=== PATIENT | female | born 1960 | race Caucasian/White ===

== ENCOUNTER 2016-12-04 07:53 | Inpatient (IN) | payer SELFPAY ==
[~2016-12-04] VITALS: Ht 185.4 cm; Wt 65.3 kg
--- NOTE | ~2016-12-04 | CON ---
[place], [place] REPORT OF CONSULTATION NAME: TONY MONTOYA UNIT #: [id number] ROOM: 415 DOCTOR: EVE RUSSO MD BIRTHDATE: [birth year] DOS: 12/05/2016 REASON FOR CONSULTATION: Syncope. HISTORY OF PRESENT ILLNESS: The patient is a 56-year-old patient with no significant cardiac history, who came to the Emergency Room after she had a "syncopal attack" at work. Prior to the episode, she has no dizziness, no chest pain, no palpitations. Apparently, she was walking with a cup in her hand and the next thing she remembers was she was on the floor and people were calling her name. Recently, she had some dental extraction with some localized pain few days ago. After she fell, she did sustain some laceration to the right forehead area near the right eye, but there was no seizure-like activities. No bladder or bowel incontinence. Other than the syncopal attack, she denies any chest pain, palpitations or dizziness. No fever or chills. No nausea, vomiting, or diarrhea. No blurred vision or double vision. No hematuria or dysuria. No joint pains or tenderness except for a localized pain from a dental extraction. She never had similar episodes in the past. REVIEW OF SYSTEMS: Review of the 8 systems negative except as mentioned above. PAST MEDICAL HISTORY: History of dental abscess. No history of diabetes, hypertension or coronary artery disease. PAST SURGICAL HISTORY: History of recent dental extraction. SOCIAL HISTORY: The patient does smoke cigarettes, but no alcohol abuse. No illicit drug use. FAMILY HISTORY: Father has diabetes, but at the age of 61. Mother has hypertension, at the age of 57. Sister at the age of 52 from an aneurysm. ALLERGIES: No known drug allergies. HOME MEDICATIONS: Reviewed. PHYSICAL EXAMINATION: VITAL SIGNS: Blood pressure 120/60, pulse 75, respiratory rate 20. GENERAL: Alert, comfortable, in no acute distress. HEENT: Pupils are round and equal. No jaundice. The patient had a laceration to the right forehead near the right eye area. Tongue was moist and pharynx was clear. NECK: Supple, no distended neck veins, no carotid bruit. Thyroid not palpable. CHEST: Chest wall was symmetrical, nontender. LUNGS: Clear to auscultation bilaterally. HEART: Regular rhythm. No S3. No palpable thrills. ABDOMEN: Benign, nontender. Bowel sounds normal. EXTREMITIES: Showed no edema. Distal pulses are palpable. SKIN: Warm and dry. No cyanosis, no clubbing. NEUROLOGIC: The patient is alert, oriented. No focal neurologic deficit. [place], [place] REPORT OF CONSULTATION NAME: TONY MONTOYA UNIT #: [id number] ROOM: [facility] DOCTOR: EVE RUSSO MD BIRTHDATE: [birth year] RECTAL: Deferred. GENITOURINARY: Deferred. REVIEW OF THE DIAGNOSTIC TESTS: EKG shows sinus rhythm with LV hypertrophy, normal QT and QTc intervals. LABORATORY DATA: CBC, chemistry reviewed. IMPRESSION: 1. Syncope, etiology unknown. 2. Tobacco use. 3. Facial injury secondary to fall. RECOMMENDATIONS: 1. Check a 2D echo for LV function and valvular function. 2. Check orthostatic blood pressures. 3. Continue current IV fluids. 4. If she is stable and echo is unremarkable, she can be discharged home tomorrow and we will follow her as outpatient. 5. I would recommend outpatient cardiac event monitor to watch for any alanna or tachyarrhythmias. 6. ____ she is stable, she will need a stress test to rule out an ischemic heart disease. The above treatment discussed with the patient and all questions were answered. EVE RUSSO MD CM:CONSTR:REPORT OF CONSULTATION [id number] 12/06/16 0500 interface
--- NOTE | ~2016-12-04 | CON ---
[place], [place] REPORT OF CONSULTATION NAME: TONY MONTOYA UNIT #: [id number] ROOM: 415 DOCTOR: BIBIANA KLEIN DMD BIRTHDATE: [birth year] DOS: The patient was admitted for facial swelling after a fall. On exam, the patient has right-sided facial swelling with a repaired laceration around the eye, moderate diffuse swelling of the left body of the mandible. Patient denies any dyspnea or dysphagia. 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 The patient states that the swelling and pain is centered around tooth #22. There is no submandibular, submental or sublingual swelling noted. There is diffuse buccal space swelling that appears to be non-drainable. I discussed the treatment options with the patient including extraction or root canal tooth #22. The patient refused extraction due to minimal masticatory effectiveness with her current dentition in upper denture, does not want to lose any other teeth. I did not see the radiology report, but the patient is relatively high risk for a pathologic fracture of the mandible because of severe resorption in the posterior; definitely recommend radiologic verification of non-fracture and also recommend referral to a dentist for root canal once the swelling is controlled and the patient is discharged. BIBIANA KLEIN DMD CM:CONSTR:REPORT OF CONSULTATION [id number] 12/05/16 1511 interface
--- NOTE | ~2016-12-04 | PR ---
[place], [place] PROGRESS NOTE NAME: TONY MONTOYA UNIT #: [id number] ROOM: 415 DOCTOR: VEE RUSSO MD BIRTHDATE: [birth year] DOS: 12/06/2016 REASON FOR VISIT: Syncope. HISTORY OF PRESENT ILLNESS: The patient is feeling better, no dizziness, no palpitation, no chest pain, no shortness of breath. No edema, no orthopnea, no PND. No nausea, vomiting. No headaches. No blurred vision, double vision. REVIEW OF SYSTEMS: Review of the 8 systems negative except as mentioned above. RHYTHM STRIPS: The patient is in sinus rhythm. PHYSICAL EXAMINATION: VITAL SIGNS: Blood pressure 140/90, respiratory rate is 18. Pulse 70. GENERAL: Alert, comfortable, in no acute distress. HEENT: Pupils are round and equal. No jaundice. The patient had a laceration to the right forehead near the eye area. NECK: Supple, no distended neck veins, no carotid bruit. CHEST: Nontender and symmetrical. LUNGS: Clear to auscultation bilaterally. HEART: Regular rhythm, no S3, grade 1/6 systolic murmur at the right sternal border. ABDOMEN: Nontender. Bowel sounds normal. EXTREMITIES: Showed no edema. Distal pulses are palpable. SKIN: Warm and dry. No cyanosis, no clubbing. NEUROLOGIC: The patient is alert, oriented. No focal neurologic deficit. IMPRESSION: 1. Syncope, etiology unknown, possibly vasovagal. 2. Facial injury due to fall. 3. Recent dental abscess. RECOMMENDATIONS: She is feeling better. Blood pressures and heart rates are stable. A 2D echo unremarkable except for mild tricuspid regurgitation. She can be discharged from the cardiac standpoint, and we will call her for outpatient event monitor and also consider a letter for outpatient stress test. [place], [place] PROGRESS NOTE NAME: TONY MONTOYA UNIT #: [id number] ROOM: 415 DOCTOR: EVE RUSSO MD BIRTHDATE: [birth year] EVE RUSSO MD CM:PNTRANS [id number] EVE RUSSO MD 12/06/16 1700 interface
[2016-12-04 08:02] VITALS: BP 139/76
[2016-12-04 08:33] LABS: BASO % 0.2 % (0.0-1.0); EOS % 0.1 % (1.0-4.0); HEMATOCRIT 42.8 % (37.0-47.0); HEMOGLOBIN 14.4 g/dl (12.0-16.0); LYMPH # 0.9 10*3/uL (1.3-4.4); LYMPH % 7.1 % (27.0-41.0); MEAN CELL VOLUME 88.2 fl (81.0-99.0); MEAN CORPUSCULAR HGB 29.7 pg (27.0-31.0); MEAN CORPUSCULAR HGB CONC 33.6 g/dl (33.0-37.0); MEAN PLATELET VOLUME 9.6 fl (9.6-12.3); MONO # 0.5 10*3/uL (0.1-1.0); MONO % 4.4 % (3.0-9.0); NEUT # 10.6 10*3/uL (2.3-7.9); NEUT % 87.9 % (47.0-73.0); PLATELET COUNT AUTOMATED 209 10*3/uL (130-400); RED BLOOD COUNT 4.85 10*6/uL (4.10-5.10); RED CELL DISTRI WIDTH 11.9 % (0-14.5); WHITE BLOOD COUNT 12.1 10*3/uL (4.8-10.8)
[2016-12-04 08:41] LABS: PROTHROMBIN TIME 10.7 SECONDS (9.0-12.4)
[2016-12-04 08:49] LABS: ALBUMIN 3.9 gm/dl (3.1-4.5); ALKALINE PHOSPHATASE 62 U/L (45-117); BILIRUBIN, TOTAL 0.6 mg/dl (0.2-1.0); BUN 6 mg/dl (7-24); C-REACTIVE PROTEIN 0.58 MG/DL (0-0.3); CARBON DIOXIDE 31 mmol/L (21-32); CHLORIDE 105 mmol/L (98-107); CKMB 2.3 ng/ml (0.5-3.6); CPK 90 U/L (26-192); EST GLOM FILT AFRICAN AMERICAN > 60 ml/min; GLUCOSE 132 mg/dL (65-99); MAGNESIUM 2.3 mg/dL (1.5-2.1); POTASSIUM 3.8 mmol/L (3.5-5.1); SGOT/AST 12 IU/L (3-35); SGPT/ALT 22 U/L (12-78); SODIUM 144 mmol/L (136-145); TOTAL PROTEIN 7.2 gm/dL (6.4-8.2)
[2016-12-04 08:56] LABS: TROPONIN I 0.126 ng/ml (<0.045)
[2016-12-04 09:00] VITALS: BP 136/100
[2016-12-04 11:00] VITALS: BP 158/81
[2016-12-04 11:59] LABS: BILIRUBIN NEGATIVE (NEGATIVE); BLOOD 1+ (NEGATIVE); CLARITY CLOUDY (CLEAR); COLOR YELLOW (YELLOW); GLUCOSE NEGATIVE (NEGATIVE); KETONE 1+ (NEGATIVE); LEUKO ESTERASE TRACE (NEGATIVE); NITRITE NEGATIVE (NEGATIVE); PROTEIN 1+ (NEGATIVE); SPECIFIC GRAVITY 1.015 (1.005-1.030)
[2016-12-04 12:00] VITALS: BP 152/90
[2016-12-04 12:06] LABS: BACTERIA 4+
[2016-12-04 12:07] LABS: URINE REFLEX COMMENT YES (NO)
[2016-12-04 14:39] VITALS: BP 144/93
[2016-12-04 18:12] LABS: CKMB 1.1 ng/ml (0.5-3.6)
[2016-12-04 18:21] LABS: TROPONIN I 0.058 ng/ml (<0.045)
[2016-12-04 20:00] VITALS: BP 108/44
[2016-12-05] VITALS: BP 113/62
[2016-12-05 00:57] LABS: CKMB 0.7 ng/ml (0.5-3.6); TROPONIN I 0.028 ng/ml (<0.045)
[2016-12-05 06:24] LABS: BASO % 0.3 % (0.0-1.0); EOS % 0.2 % (1.0-4.0); HEMATOCRIT 38.4 % (37.0-47.0); HEMOGLOBIN 12.6 g/dl (12.0-16.0); IG # 0.1 10*3/uL (0.0-0.1); LYMPH # 1.6 10*3/uL (1.3-4.4); LYMPH % 18.3 % (27.0-41.0); MEAN CELL VOLUME 89.3 fl (81.0-99.0); MEAN CORPUSCULAR HGB 29.3 pg (27.0-31.0); MEAN CORPUSCULAR HGB CONC 32.8 g/dl (33.0-37.0); MEAN PLATELET VOLUME 10.1 fl (9.6-12.3); MONO # 0.6 10*3/uL (0.1-1.0); MONO % 6.9 % (3.0-9.0); NEUT # 6.4 10*3/uL (2.3-7.9); NEUT % 73.7 % (47.0-73.0); PLATELET COUNT AUTOMATED 189 10*3/uL (130-400); RED CELL DISTRI WIDTH 12.1 % (0-14.5); WHITE BLOOD COUNT 8.7 10*3/uL (4.8-10.8)
[2016-12-05 06:28] LABS: TROPONIN I 0.017 ng/ml (<0.045)
[2016-12-05 06:31] LABS: CKMB 0.9 ng/ml (0.5-3.6)
[2016-12-05 06:57] LABS: BUN 9 mg/dl (7-24); CARBON DIOXIDE 26 mmol/L (21-32); CHLORIDE 110 mmol/L (98-107); GLUCOSE 88 mg/dL (65-99); MAGNESIUM 2.3 mg/dL (1.5-2.1); POTASSIUM 3.8 mmol/L (3.5-5.1); SODIUM 144 mmol/L (136-145)
[2016-12-05 06:58] LABS: HEMOGLOBIN A1c 5.4 % (4.8-5.6); PROTHROMBIN TIME 10.7 SECONDS (9.0-12.4)
[2016-12-05 07:07] LABS: ALKALINE PHOSPHATASE 48 U/L (45-117); BILIRUBIN, TOTAL 0.5 mg/dl (0.2-1.0); CHOLESTEROL 157 mg/dL (<200); EST GLOM FILT AFRICAN AMERICAN > 60 ml/min; FREE T4 0.78 ng/dl (0.76-1.46); HDL CHOLESTEROL 72 mg/dl (40-60); LDL CHOLESTEROL 68 mg/dL (9-159); PHOSPHOROUS 2.7 mg/dL (2.5-4.9); SGOT/AST 13 IU/L (3-35); SGPT/ALT 19 U/L (12-78); TRIGLYCERIDES 83 mg/dl (<150); VLDL CHOLESTEROL 17 mg/dL (6-40)
[2016-12-05 07:17] LABS: FOLIC ACID 9.93 ng/mL (>5.38); VITAMIN D, 25-HYDROXY 10.2 ng/mL (30-100)
[2016-12-05 08:00] VITALS: BP 120/60
[2016-12-05 12:00] VITALS: BP 113/60
[2016-12-05 16:47] VITALS: BP 141/81
[2016-12-05 20:00] VITALS: BP 131/68
[2016-12-06] VITALS: BP 131/80
[2016-12-06 08:00] VITALS: BP 170/90
[2016-12-06 12:00] VITALS: BP 119/71
[2016-12-06] MEDS ORDERED: D-1000 185 MG-11 TAB PO (12:31)
[2016-12-06] MEDS ORDERED: B12,B-12,B 12500 MC1 PO (12:31)
[2016-12-06] MEDS ORDERED: CLINDAMYCIN150 MG PO (12:31)
[2016-12-07] MEDS ORDERED: AUGMENTIN 875-875 MG PO (13:57)
== END 2016-12-06 13:53 | disposition home or self-care (01) | DRG 312 ==
LOC: ED 07:53 → EDHOLD 12:26 → 4E 12:26
PROVIDERS: Emergency Medicine; Hospitalist
DX: R55 Syncope and collapse (principal); S09.90XA Unspecified injury of head, initial encounter; S01.111A Laceration without foreign body of right eyelid and periocular area, initial encounter; K04.7 Periapical abscess without sinus; F17.200 Nicotine dependence, unspecified, uncomplicated; W18.30XA Fall on same level, unspecified, initial encounter; I10 Essential (primary) hypertension; E83.41 Hypermagnesemia; Z83.3 Family history of diabetes mellitus; Z82.49 Family history of ischemic heart disease and other diseases of the circulatory system; Y93.89 Activity, other specified; Y92.89 Other specified places as the place of occurrence of the external cause; Y99.8 Other external cause status